=== PATIENT | female | born 1940 | race Caucasian/White ===

== ENCOUNTER 2017-03-13 19:13 | Inpatient (IN) | payer MEDICARE, OTHER ==
[~2017-03-13] VITALS: Ht 172.7 cm; Wt 73.3 kg
[2017-03-13] MEDS ORDERED: SODIUM CHLORIDE FLUSH 10ML SYR IVF ONE (20:30)
[2017-03-13] MEDS ORDERED: ASPIRIN 81 MG TABLET CHEW PO ONE (20:30)
[2017-03-13] MEDS ORDERED: MAGN300C PO (20:34)
[2017-03-13] MEDS ORDERED: FURO20TA3 PO (20:34)
[2017-03-13] MEDS ORDERED: VICODIN (20:34)
[2017-03-13] MEDS ORDERED: CHOL20002 PO (20:34)
[2017-03-13] MEDS ORDERED: OMEP-110 PO (20:34)
[2017-03-13] MEDS ORDERED: PRED5TAB PO (20:34)
[2017-03-13] MEDS ORDERED: HYDR200T PO (20:34)
[2017-03-13] MEDS ORDERED: BECL8.7H INH (20:34)
[2017-03-13] MEDS ORDERED: [UNRECOGNIZED DRUG - OTHER] (20:34)
[2017-03-13] MEDS ORDERED: POTA10TA31 PO (20:34)
[2017-03-13] MEDS ORDERED: WARF1TAB7 PO (20:34)
[2017-03-13] MEDS ORDERED: ASPIRIN 81 MG TABLET CHEW ONE (20:42)
[2017-03-13 21:04] LABS: ASPARTATE AMINO TRANSFERASE 19 U/L (15-37); BLOOD UREA NITROGEN 12 mg/dL (7-18)
[2017-03-13 21:14] LABS: IS PT STATUS REG ER OR PRE ER? YES
[2017-03-13] MEDS ORDERED: IBUPROFEN 200 MG TABLET ONE (22:59)
[2017-03-13] MEDS ORDERED: CEFTRIAXONE PMX 1GM/50ML 50 ML ONE (22:59)
[2017-03-13] MEDS ORDERED: IBUPROFEN 200 MG TABLET PO ONE (23:00)
[2017-03-13] MEDS ORDERED: CEFTRIAXONE PMX 1GM/50ML 50 ML IV ONE (23:00)
[2017-03-13 23:40] VITALS: BP 131/71
[2017-03-13] MEDS ORDERED: BECLOMETHASONE MC SCH (23:45)
[2017-03-14] MEDS ORDERED: WARFARIN 1 MG TABLET PO-COUM SCH
[2017-03-14] MEDS ORDERED: GUAIFENESIN/DM 200-20MG, 10ML UDC PO PRN
[2017-03-14] MEDS ORDERED: ENALAPRILAT 1.25 MG/ML, 2ML IVPush PRN
[2017-03-14] MEDS ORDERED: BISACODYL 10 MG SUPP PR PRN
[2017-03-14] MEDS ORDERED: POLYETHYLENE GLYCOL 17 GM PACKET PO PRN
[2017-03-14] MEDS ORDERED: ONDANSETRON 2MG/ML, 2ML IVP PRN
[2017-03-14] MEDS ORDERED: IBUPROFEN 200 MG TABLET PO PRN (00:30)
[2017-03-14 00:46] VITALS: BP 131/71
[2017-03-14] MEDS: NS + 20MEQ KCL 1,000 ML IV SCH ×2 (00:52→11:39)
[2017-03-14] MEDS ORDERED: ALBUTEROL SULFATE 2.5 MG/3 ML NPPB PRN (01:00)
[2017-03-14 03:47] LABS: PATH.CAST-FLAG NOT PRESENT; SPERM-FLAG NOT PRESENT; SRC-FLAG NOT PRESENT; XTAL-FLAG NOT PRESENT; YLC-FLAG NOT PRESENT
[2017-03-14 06:34] LABS: BLOOD UREA NITROGEN 12 mg/dL (7-18)
[2017-03-14 06:36] LABS: ASPARTATE AMINO TRANSFERASE 20 U/L (15-37)
[2017-03-14 07:06] VITALS: BP 161/79
[2017-03-14] MEDS: OMEPRAZOLE 20 MG CAPSULE.DR PO SCH (08:57)
[2017-03-14] MEDS ORDERED: HYDROcodone/APAP 5/325 TABLET PO PRN (09:00)
[2017-03-14] MEDS: POTASSIUM CHLORIDE 10 MEQ TABLET.ER PO SCH (10:30)
[2017-03-14] MEDS: MAGNESIUM OXIDE 400 MG TABLET PO SCH (10:30)
[2017-03-14] MEDS: CHOLECALCIFEROL 1,000 UNIT TABLET PO SCH (10:30)
[2017-03-14] MEDS: SENNA/DOCUSATE TABLET PO SCH ×2 (10:30→10:34)
[2017-03-14] MEDS: FUROSEMIDE 20 MG TABLET PO SCH (10:31)
[2017-03-14] MEDS ORDERED: BENZONATATE 100 MG CAPSULE PO PRN (12:30)
[2017-03-14 13:33] VITALS: BP 173/90
[2017-03-14] MEDS: CEFTRIAXONE PMX 1GM/50ML 50 ML IV SCH (13:50)
[2017-03-14 14:27] VITALS: BP 138/63
[2017-03-14] MEDS: DOXYCYCLINE 100 MG in DEXTROSE 5% 250 ML IV SCH (14:38)
[2017-03-14] MEDS: FLUTICASONE FUROATE 200MCG/INH INH SCH (20:00)
[2017-03-14 20:06] VITALS: BP 139/66
[2017-03-14] MEDS: HYDROXYCHLOROQUINE 200 MG TABLET PO SCH (20:15)
[2017-03-14] MEDS ORDERED: NS + 20MEQ KCL 1,000 ML IV SCH (23:00)
[2017-03-15 01:36] VITALS: BP 126/72
[2017-03-15] MEDS: CEFTRIAXONE PMX 1GM/50ML 50 ML IV SCH (02:05)
[2017-03-15] MEDS: DOXYCYCLINE 100 MG in DEXTROSE 5% 250 ML IV SCH (02:36)
[2017-03-15 06:30] LABS: BLOOD UREA NITROGEN 9 mg/dL (7-18)
[2017-03-15 07:28] VITALS: BP 143/76
[2017-03-15] MEDS: FUROSEMIDE 20 MG TABLET PO SCH (08:39)
[2017-03-15] MEDS: CHOLECALCIFEROL 1,000 UNIT TABLET PO SCH (08:40)
[2017-03-15] MEDS: MAGNESIUM OXIDE 400 MG TABLET PO SCH (08:40)
[2017-03-15] MEDS: OMEPRAZOLE 20 MG CAPSULE.DR PO SCH (08:40)
[2017-03-15] MEDS: FLUTICASONE FUROATE 200MCG/INH INH SCH (08:43)
[2017-03-15] MEDS: HYDROXYCHLOROQUINE 200 MG TABLET PO SCH (08:44)
[2017-03-15] MEDS: POTASSIUM CHLORIDE 10 MEQ TABLET.ER PO SCH (08:45)
[2017-03-15] MEDS: DOXYCYCLINE 100MG TABLET PO SCH ×2 (11:38→20:47)
[2017-03-15] MEDS: CEFDINIR 300 MG CAPSULE PO SCH ×2 (11:38→20:47)
[2017-03-15 13:22] VITALS: BP 111/65
[2017-03-15] MEDS ORDERED: WARFARIN 1 MG TABLET PO-COUM SCH (18:00)
[2017-03-15] MEDS ORDERED: WARFARIN 3 MG TABLET PO-COUM SCH (18:00)
[2017-03-15 18:38] VITALS: BP 120/67
[2017-03-16 03:59] VITALS: BP 154/81
[2017-03-16 06:35] VITALS: BP 149/74
[2017-03-16] MEDS: FLUTICASONE FUROATE 200MCG/INH INH SCH (08:17)
[2017-03-16] MEDS: FUROSEMIDE 20 MG TABLET PO SCH (08:19)
[2017-03-16] MEDS: OMEPRAZOLE 20 MG CAPSULE.DR PO SCH (08:19)
[2017-03-16] MEDS: MAGNESIUM OXIDE 400 MG TABLET PO SCH (08:19)
[2017-03-16] MEDS: POTASSIUM CHLORIDE 10 MEQ TABLET.ER PO SCH (08:19)
[2017-03-16] MEDS: DOXYCYCLINE 100MG TABLET PO SCH (08:20)
[2017-03-16] MEDS: SENNA/DOCUSATE TABLET PO SCH (08:20)
[2017-03-16] MEDS: CEFDINIR 300 MG CAPSULE PO SCH (08:20)
[2017-03-16] MEDS: CHOLECALCIFEROL 1,000 UNIT TABLET PO SCH (08:21)
[2017-03-16] MEDS ORDERED: DOXY100T PO (08:34)
[2017-03-16] MEDS ORDERED: CEFD300C37 PO (08:34)
== END 2017-03-16 11:46 | disposition home or self-care (01) | DRG 871 ==
LOC: ED 20:50 → EDIP 22:33 → 4NOR 23:22
PROVIDERS: ADMIT Internal Medicine
DX: A41.9 Sepsis, unspecified organism (principal); J18.9 Pneumonia, unspecified organism; J96.21 Acute and chronic respiratory failure with hypoxia; E87.1 Hypo-osmolality and hyponatremia; E87.6 Hypokalemia; D63.8 Anemia in other chronic diseases classified elsewhere; I11.9 Hypertensive heart disease without heart failure; K21.9 Gastro-esophageal reflux disease without esophagitis; Z66 Do not resuscitate; Z79.01 Long term (current) use of anticoagulants; Z79.52 Long term (current) use of systemic steroids; Z85.828 Personal history of other malignant neoplasm of skin; Z86.718 Personal history of other venous thrombosis and embolism; Z87.01 Personal history of pneumonia (recurrent); Z79.899 Other long term (current) drug therapy
CPT/HCPCS: 36415; 71010; 71250; 80048; 80053; 81001; 83605; 83735; 83880; 84145; 84484; 85025; 85379; 85610; 87040; 87070; 87205; 93005; 96374; J0696; J2405; J3480; J7060; J7512

== ENCOUNTER 2017-07-08 14:32 | Inpatient (IN) | payer MEDICARE, OTHER ==
[~2017-07-08] VITALS: Ht 172.7 cm; Wt 60.1 kg
[~2017-07-08 14:32] MED LIST: BECL8.7H INH; CEFD300C37 PO; CHOL20002 PO; DOXY100T PO; FURO20TA3 PO; HYDR200T PO; MAGN300C PO; OMEP-110 PO; POTA10TA31 PO; PRED5TAB PO; VICODIN; WARF1TAB7 PO; [UNRECOGNIZED DRUG - OTHER]
[2017-07-08] MEDS ORDERED: ONDANSETRON 2MG/ML, 2ML IVPush ONE ×2 (15:30→20:00)
[2017-07-08] MEDS ORDERED: FAMOTIDINE 20 MG/2 ML IVP ONE (15:30)
[2017-07-08] MEDS ORDERED: SODIUM CHLORIDE 0.9% 1,000ML IVBOLUS ONE (15:30)
[2017-07-08] MEDS ORDERED: SODIUM CHLORIDE FLUSH 10ML SYR IVF ONE (15:30)
[2017-07-08 16:28] LABS: HEMATOCRIT 41.9 % (34.6-47.8); HEMOGLOBIN 13.9 g/dL (11.7-16.4); WHITE BLOOD COUNT 10.1 x10^3/uL (3.4-10)
[2017-07-08 16:41] LABS: BLOOD UREA NITROGEN 19 mg/dL (7-18)
[2017-07-08 16:44] LABS: ASPARTATE AMINO TRANSFERASE 14 U/L (15-37)
[2017-07-08] MEDS ORDERED: SODIUM CHLORIDE 0.9% 1,000 ML IV ONE ×2 (19:46→20:17)
[2017-07-08] MEDS ORDERED: HYDROmorphone 1 MG/ML, 1ML ONE (19:49)
[2017-07-08] MEDS ORDERED: ONDANSETRON 2MG/ML, 2ML ONE (19:52)
[2017-07-08] MEDS ORDERED: MORPHINE SULFATE 4 MG/ML, 1ML ONE (19:52)
[2017-07-08] MEDS ORDERED: MORPHINE SULFATE 4 MG/ML, 1ML IVPush PRN ×2 (20:00→20:30)
[2017-07-08] MEDS ORDERED: SODIUM CHLORIDE FLUSH 10ML SYR IVF PRN (20:30)
[2017-07-08] MEDS ORDERED: CEFTRIAXONE PMX 1GM/50ML 50 ML IV ONE (20:30)
[2017-07-08] MEDS ORDERED: ONDANSETRON 2MG/ML, 2ML IVPush PRN ×2 (20:30→21:30)
[2017-07-08] MEDS ORDERED: CEFTRIAXONE PMX 1GM/50ML 50 ML ONE (20:37)
[2017-07-08 21:10] VITALS: BP 157/72
[2017-07-08] MEDS ORDERED: CEFTRIAXONE PMX 1GM/50ML 50 ML IV SCH (21:30)
[2017-07-08] MEDS ORDERED: BISACODYL 10 MG SUPP PR PRN (21:30)
[2017-07-08] MEDS ORDERED: ACETAMINOPHEN 325 MG TABLET PO PRN (21:30)
[2017-07-08] MEDS ORDERED: PROMETHAZINE 25 MG/ML, 1ML IM PRN (21:30)
[2017-07-08] MEDS: morphine SULFATE 10 MG/ML, 1ML IVPush PRN (23:03)
[2017-07-08 23:28] VITALS: BP 157/72
[2017-07-09] VITALS (8 sets, daily range): BP systolic 112–166; BP diastolic 65–77
[2017-07-09] MEDS: NS + 20MEQ KCL 1,000 ML IV SCH (02:21)
[2017-07-09] MEDS ORDERED: MORPHINE SULFATE 4 MG/ML, 1ML ONE ×2 (02:36→10:50)
[2017-07-09] MEDS: morphine SULFATE 10 MG/ML, 1ML IVPush PRN ×3 (02:38→19:41)
[2017-07-09 05:10] LABS: BLOOD UREA NITROGEN 15 mg/dL (7-18)
[2017-07-09] MEDS ORDERED: FENTANYL PF 100 MCG/2ML ONE (07:46)
[2017-07-09] MEDS ORDERED: HYDROCORTISONE 100 MG INJ. ONE (07:51)
[2017-07-09] MEDS ORDERED: PROPOFOL 10 MG/ML, 20ML ONE (08:04)
[2017-07-09] MEDS ORDERED: ROCURONIUM 10 MG/ML ONE (08:04)
[2017-07-09] MEDS ORDERED: GLYCOPYRROLATE 0.2MG/1ML ONE (08:04)
[2017-07-09] MEDS ORDERED: PHENYLEPHRINE 10 MG/ML ONE (08:04)
[2017-07-09] MEDS ORDERED: NEOSTIGMINE 1 MG/ML, 10ML ONE (08:04)
[2017-07-09] MEDS ORDERED: SUCCINYLCHOLINE 20 MG/ML, 10ML ONE (08:04)
[2017-07-09] MEDS ORDERED: LABETALOL 5MG/ML, 20ML IV PRN (08:30)
[2017-07-09] MEDS ORDERED: PROMETHAZINE 25 MG/ML, 1ML IV PRN (08:30)
[2017-07-09] MEDS ORDERED: FENTANYL PF 100 MCG/2ML IV PRN (08:30)
[2017-07-09] MEDS ORDERED: morphine SULFATE 10 MG/ML, 1ML IV PRN (08:30)
[2017-07-09] MEDS ORDERED: hydrALAzine 20 MG/ML, 1ML IV PRN (08:30)
[2017-07-09] MEDS ORDERED: ALBUTEROL SULFATE 2.5 MG/3 ML NPPB PRN (08:30)
[2017-07-09] MEDS: FLUTICASONE NASAL SPRAY 16GM NAS SCH ×2 (09:00→21:00)
[2017-07-09] MEDS: PANTOPROZOLE 40MG TABLET PO SCH ×2 (09:30→21:30)
[2017-07-09] MEDS: SUCRALFATE 1 GM/10 ML UDC PO SCH ×3 (10:55→21:33)
[2017-07-09] MEDS ORDERED: POTASSIUM CHLORIDE 40 MEQ in SODIUM CHLORIDE 0.9% 500 ML IV ONE (13:30)
[2017-07-09] MEDS: SODIUM CHLORIDE 0.9% 1,000 ML IV SCH (21:34)
[2017-07-10] MEDS ORDERED: MORPHINE SULFATE 4 MG/ML, 1ML ONE (01:28)
[2017-07-10] MEDS: morphine SULFATE 10 MG/ML, 1ML IVPush PRN (01:32)
[2017-07-10 02:00] VITALS: BP 114/63
[2017-07-10] MEDS: SODIUM CHLORIDE 0.9% 1,000 ML IV SCH (07:30)
[2017-07-10 08:20] LABS: BLOOD UREA NITROGEN 13 mg/dL (7-18)
[2017-07-10 08:25] VITALS: BP 110/63
[2017-07-10 08:44] LABS: HEMOGLOBIN 10.1 g/dL (11.7-16.4); WHITE BLOOD COUNT 5.9 x10^3/uL (3.4-10)
[2017-07-10] MEDS: NS + 20MEQ KCL 1,000 ML IV SCH (09:12)
[2017-07-10] MEDS: SUCRALFATE 1 GM/10 ML UDC PO SCH ×2 (09:15→11:21)
[2017-07-10] MEDS: FLUTICASONE NASAL SPRAY 16GM NAS SCH (09:15)
[2017-07-10] MEDS: PANTOPROZOLE 40MG TABLET PO SCH ×2 (09:16→09:29)
[2017-07-10] MEDS ORDERED: ACETAMINOPHEN 325 MG TABLET PO PRN (14:30)
[2017-07-10] MEDS ORDERED: PROMETHAZINE 25 MG/ML, 1ML IM PRN (14:30)
[2017-07-10] MEDS ORDERED: BISACODYL 10 MG SUPP PR PRN (14:30)
== END 2017-07-10 14:20 | disposition home or self-care (01) | DRG 394 ==
LOC: ED 18:20 → EDIP 20:17 → 3NW 21:30
PROVIDERS: ADMIT Family Medicine; ATTEND Family Medicine
PROC: 0DC58ZZ Extirpation of Matter from Esophagus, Via Natural or Artificial Opening Endoscopic (ICD-10-PCS; principal; 2017-07-08)
PROC: 0D758ZZ Dilation of Esophagus, Via Natural or Artificial Opening Endoscopic (ICD-10-PCS; 2017-07-08)
PROC: 0DB58ZX Excision of Esophagus, Via Natural or Artificial Opening Endoscopic, Diagnostic (ICD-10-PCS; 2017-07-08)
DX: T18.128A Food in esophagus causing other injury, initial encounter (principal); D68.69 Other thrombophilia; E46 Unspecified protein-calorie malnutrition; J84.10 Pulmonary fibrosis, unspecified; Z99.81 Dependence on supplemental oxygen; N30.90 Cystitis, unspecified without hematuria; B95.61 Methicillin susceptible Staphylococcus aureus infection as the cause of diseases classified elsewhere; K22.2 Esophageal obstruction; E86.0 Dehydration; E11.9 Type 2 diabetes mellitus without complications; E87.6 Hypokalemia; I10 Essential (primary) hypertension; K21.0 Gastro-esophageal reflux disease with esophagitis; M06.9 Rheumatoid arthritis, unspecified; Z66 Do not resuscitate; X58.XXXA Exposure to other specified factors, initial encounter; Y93.89 Activity, other specified; Y92.89 Other specified places as the place of occurrence of the external cause; Z68.20 Body mass index [BMI] 20.0-20.9, adult; Y99.8 Other external cause status; Z79.01 Long term (current) use of anticoagulants; Z86.718 Personal history of other venous thrombosis and embolism; Z87.440 Personal history of urinary (tract) infections; Z88.1 Allergy status to other antibiotic agents; Z88.0 Allergy status to penicillin; Z88.2 Allergy status to sulfonamides; Z88.8 Allergy status to other drugs, medicaments and biological substances
CPT/HCPCS: 36415; 74022; 74220; 80048; 80053; 81001; 83690; 83735; 85025; 85610; 86850; 86900; 87077; 87086; 87186; 88305; 93005; 96361; 96365; 96375; J0696; J2405; J2704; J2710; J3010; J3480; J3490; J0330; J1720; J2270; J2370; J7030; J7040; P9017

== ENCOUNTER 2017-07-19 07:05 | Outpatient (CLI) | payer MEDICARE, OTHER ==
[~2017-07-19] VITALS: Ht 172.7 cm; Wt 56.0 kg
[~2017-07-19 07:05] MED LIST changes: +BUPIVACAINE/PF 0.5% ONE; +CYCL5TAB PO; +IPRA5POW PO; +OXYC-302 PO
[2017-07-19] MEDS ORDERED: FENTANYL PF 100 MCG/2ML ONE ×2 (07:16)
[2017-07-19] MEDS ORDERED: MIDAZOLAM 1 MG/ML, 2ML ONE (07:16)
[2017-07-19] MEDS ORDERED: LACTATED RINGERS 1,000 ML IV SCH (07:30)
[2017-07-19 08:16] LABS: PATH.CAST-FLAG NOT PRESENT; SPERM-FLAG NOT PRESENT; SRC-FLAG NOT PRESENT; XTAL-FLAG NOT PRESENT; YLC-FLAG NOT PRESENT
[2017-07-19 09:01] VITALS: BP 149/74
[2017-07-19 09:13] LABS: HIV 1&2 ANTIBODY SCREEN Nonreactive (Nonreactive); HIV-1 p24 ANTIGEN Nonreactive (Nonreactive)
[2017-07-19] MEDS ORDERED: OXYcodone/APAP 5/325MG TABLET ONE (09:57)
[2017-07-19] MEDS ORDERED: OXYcodone/APAP 5/325MG TABLET PO ONE (10:00)
== END 2017-07-19 11:30 | disposition home or self-care (01) ==
LOC: OUT 07:05 → EDSTATUS 09:00 → OUT 11:30
PROVIDERS: ATTEND Orthopaedic Surgery Orthopaedic Surgery of the Spine
DX: Z01.818 Encounter for other preprocedural examination (principal); M48.54XA Collapsed vertebra, not elsewhere classified, thoracic region, initial encounter for fracture; M48.56XA Collapsed vertebra, not elsewhere classified, lumbar region, initial encounter for fracture; M06.9 Rheumatoid arthritis, unspecified; M47.894 Other spondylosis, thoracic region; M47.896 Other spondylosis, lumbar region; K21.9 Gastro-esophageal reflux disease without esophagitis; Z79.899 Other long term (current) drug therapy; Z88.8 Allergy status to other drugs, medicaments and biological substances
CPT/HCPCS: 36415; 81001; 85610; 86703; 86704; 86706; 86708; 86803; 87340; 87899; J2250; J3010; J3490; G0435

== ENCOUNTER 2017-09-27 07:25 | Day surgery (SDC) | payer MEDICARE, OTHER ==
[~2017-09-27] VITALS: Ht 172.7 cm; Wt 54.0 kg
[~2017-09-27 07:25] MED LIST changes: -BUPIVACAINE/PF 0.5% ONE
[2017-09-27 08:06] VITALS: BP 112/75
[2017-09-27] MEDS ORDERED: LACTATED RINGERS 1,000 ML IV SCH (08:09)
[2017-09-27] MEDS ORDERED: APIX2.5T PO (08:14)
[2017-09-27] MEDS ORDERED: BECL8.7H INH (08:14)
[2017-09-27] MEDS ORDERED: LIDOCAINE 1%, 2ML ONE (08:16)
[2017-09-27] MEDS ORDERED: ALBUTEROL SULFATE 2.5 MG/3 ML NPPB PRN (08:30)
[2017-09-27] MEDS ORDERED: LIDOCAINE 1%, 2ML SQ PRN (08:30)
[2017-09-27] MEDS ORDERED: EPHEDRINE 50 MG/ML, 1ML IVPush PRN (08:30)
[2017-09-27] MEDS ORDERED: METOPROLOL 1 MG/ML, 5ML IV PRN (08:30)
[2017-09-27] MEDS ORDERED: hydrALAzine 20 MG/ML, 1ML IV PRN (08:30)
[2017-09-27] MEDS ORDERED: FENTANYL PF 100 MCG/2ML IV PRN (08:30)
[2017-09-27] MEDS ORDERED: ONDANSETRON 2MG/ML, 2ML IVPush PRN (08:30)
[2017-09-27] MEDS ORDERED: LABETALOL 5MG/ML, 20ML IV PRN (08:30)
== END 2017-09-27 12:35 ==
LOC: OUT 07:25
PROVIDERS: ATTEND Internal Medicine Gastroenterology
DX: K29.60 Other gastritis without bleeding (principal); K22.2 Esophageal obstruction; Z88.1 Allergy status to other antibiotic agents; Z88.5 Allergy status to narcotic agent; Z88.8 Allergy status to other drugs, medicaments and biological substances; Z86.718 Personal history of other venous thrombosis and embolism
CPT/HCPCS: 43249; C1725; J3010; J3490; J7120

== ENCOUNTER → 2017-12-21 | Outpatient (CLI) | payer MEDICARE, OTHER ==
[~2017-12-21] MED LIST changes: +APIX2.5T PO
== END ==
LOC: CFH 12:27
PROVIDERS: ATTEND Internal Medicine Critical Care Medicine
DX: J84.9 Interstitial pulmonary disease, unspecified (principal); G89.29 Other chronic pain
CPT/HCPCS: 71250

== ENCOUNTER → 2018-01-05 | Outpatient (CLI) | payer MEDICARE, OTHER ==
[~2018-01-05] MED LIST changes: +OMNIPAQUE 350 MG/ML, 100ML BOTTLE ONE
== END ==
LOC: CFH 11:31
PROVIDERS: ATTEND Nurse Practitioner Family
DX: K76.0 Fatty (change of) liver, not elsewhere classified (principal); K59.00 Constipation, unspecified; M85.80 Other specified disorders of bone density and structure, unspecified site; Z88.0 Allergy status to penicillin; Z88.2 Allergy status to sulfonamides; Z88.8 Allergy status to other drugs, medicaments and biological substances
CPT/HCPCS: 74177; 82565; Q9967

== ENCOUNTER → 2018-01-10 | Outpatient (CLI) | payer MEDICARE, OTHER ==
[~2018-01-10] MED LIST changes: -OMNIPAQUE 350 MG/ML, 100ML BOTTLE ONE
== END | disposition home or self-care (01) ==
LOC: CFH 13:53
PROVIDERS: ATTEND Otolaryngology
DX: E04.1 Nontoxic single thyroid nodule (principal); D49.7 Neoplasm of unspecified behavior of endocrine glands and other parts of nervous system
CPT/HCPCS: 76536

== ENCOUNTER 2018-02-24 06:16 | Day surgery (SDC) | payer MEDICARE, OTHER ==
[~2018-02-24] VITALS: Ht 170.2 cm; Wt 59.3 kg
[~2018-02-24 06:16] MED LIST changes: -HYDR200T PO; +HYDR200T72 PO; -WARF1TAB7 PO; +WARF1TAB74 PO
[2018-02-24] MEDS ORDERED: LACTATED RINGERS 1,000 ML IV SCH (07:12)
[2018-02-24] MEDS ORDERED: APIX5TAB PO (07:28)
[2018-02-24] MEDS ORDERED: ACET1TAB64 PO (07:28)
[2018-02-24 07:57] VITALS: BP 168/77
[2018-02-24] MEDS ORDERED: PROPOFOL 10 MG/ML, 20ML ONE (08:15)
[2018-02-24] MEDS ORDERED: ACETAMINOPHEN 325 MG TABLET PO PRN (09:30)
[2018-02-24] MEDS ORDERED: ONDANSETRON ODT 4 MG PO ONE (09:30)
== END 2018-02-24 10:00 | disposition home or self-care (01) ==
LOC: OUT 06:16
PROVIDERS: ATTEND Internal Medicine Gastroenterology
DX: D12.2 Benign neoplasm of ascending colon (principal); D12.3 Benign neoplasm of transverse colon; K57.30 Diverticulosis of large intestine without perforation or abscess without bleeding; K21.9 Gastro-esophageal reflux disease without esophagitis; Z86.718 Personal history of other venous thrombosis and embolism; M19.90 Unspecified osteoarthritis, unspecified site; Z90.710 Acquired absence of both cervix and uterus; Z90.49 Acquired absence of other specified parts of digestive tract; Z93.0 Tracheostomy status; Z79.899 Other long term (current) drug therapy; Z88.2 Allergy status to sulfonamides; Z88.0 Allergy status to penicillin; Z88.8 Allergy status to other drugs, medicaments and biological substances; M85.80 Other specified disorders of bone density and structure, unspecified site; J84.10 Pulmonary fibrosis, unspecified
CPT/HCPCS: 45385; 88305; 93005; J2704; J7120

== ENCOUNTER → 2018-11-22 | Outpatient (CLI) | payer MEDICARE, OTHER ==
[~2018-11-22] MED LIST changes: +ACET1TAB64 PO; +APIX5TAB PO; -CHOL20002 PO; +CHOL200085 PO
== END | disposition home or self-care (01) ==
LOC: CFH 13:06
PROVIDERS: ATTEND Internal Medicine Critical Care Medicine
DX: J84.9 Interstitial pulmonary disease, unspecified (principal)
CPT/HCPCS: 71250

== ENCOUNTER 2019-06-22 12:41 | Outpatient (CLI) | payer MEDICARE, OTHER ==
[~2019-06-22 12:41] MED LIST changes: +BECL8.7H NS; +CHOL20002 PO; -CHOL200085 PO
[2019-06-22] MEDS ORDERED: POLY17PO5 PO (13:24)
[2019-06-22] MEDS ORDERED: MAGN250T8 PO (13:24)
[2019-06-22] MEDS ORDERED: POTA20TA89 PO (13:24)
[2019-06-22] MEDS ORDERED: IPRA3AMP30 NEB (13:24)
== END 2019-06-22 23:59 | disposition home or self-care (01) ==
LOC: STAR 12:41
PROVIDERS: ATTEND Internal Medicine Gastroenterology
DX: Z01.818 Encounter for other preprocedural examination (principal); R13.14 Dysphagia, pharyngoesophageal phase
CPT/HCPCS: 93005

== ENCOUNTER 2019-06-27 08:00 | Day surgery (SDC) | payer MEDICARE, OTHER ==
[~2019-06-27] VITALS: Ht 172.7 cm; Wt 54.0 kg
[2019-06-27 08:28] VITALS: BP 161/76
== END 2019-06-27 11:40 | disposition home or self-care (01) ==
LOC: OUT 08:00
PROVIDERS: ATTEND Internal Medicine Gastroenterology
DX: K22.5 Diverticulum of esophagus, acquired (principal); T18.128A Food in esophagus causing other injury, initial encounter; K44.9 Diaphragmatic hernia without obstruction or gangrene; K21.9 Gastro-esophageal reflux disease without esophagitis; Z86.718 Personal history of other venous thrombosis and embolism; Z90.710 Acquired absence of both cervix and uterus; Z98.890 Other specified postprocedural states; Z85.819 Personal history of malignant neoplasm of unspecified site of lip, oral cavity, and pharynx; Z88.1 Allergy status to other antibiotic agents; Z88.5 Allergy status to narcotic agent; Z88.0 Allergy status to penicillin; Z88.8 Allergy status to other drugs, medicaments and biological substances; X58.XXXA Exposure to other specified factors, initial encounter; Y93.89 Activity, other specified; Y92.89 Other specified places as the place of occurrence of the external cause; Y99.8 Other external cause status
CPT/HCPCS: 43247; 43248; J2704; J7120

== ENCOUNTER 2019-11-19 08:30 | Outpatient (CLI) | payer MEDICARE, OTHER ==
[~2019-11-19 08:30] MED LIST changes: +IPRA3AMP30 NEB; +MAGN250T8 PO; +POLY17PO5 PO; +POTA20TA89 PO
== END 2019-11-19 23:59 | disposition home or self-care (01) ==
LOC: RAD 08:30
PROVIDERS: ATTEND Surgery
DX: Q39.6 Congenital diverticulum of esophagus (principal); J84.10 Pulmonary fibrosis, unspecified; M19.90 Unspecified osteoarthritis, unspecified site; K22.8 Other specified diseases of esophagus; Z90.89 Acquired absence of other organs; Z90.710 Acquired absence of both cervix and uterus; Z88.8 Allergy status to other drugs, medicaments and biological substances; Z88.6 Allergy status to analgesic agent; Z88.0 Allergy status to penicillin; Z88.2 Allergy status to sulfonamides; Z88.5 Allergy status to narcotic agent
CPT/HCPCS: 74220

== ENCOUNTER 2019-11-20 10:30 | Outpatient (CLI) | payer MEDICARE, OTHER | END 2019-11-20 23:59 | disposition home or self-care (01) | LOC: CFH 10:30 | PROVIDERS: ATTEND Surgery | DX: R13.10 Dysphagia, unspecified (principal) | CPT/HCPCS: 82565 ==

== ENCOUNTER 2019-11-27 13:37 | Outpatient (CLI) | payer MEDICARE, OTHER, MEDICAID ==
[2019-11-27] MEDS ORDERED: OMNIPAQUE 350 MG/ML, 100ML BOTTLE ONE (16:06)
== END 2019-11-27 23:59 | disposition home or self-care (01) ==
LOC: CFH 13:37
PROVIDERS: ATTEND Surgery
DX: R13.10 Dysphagia, unspecified (principal); J84.10 Pulmonary fibrosis, unspecified; Q39.6 Congenital diverticulum of esophagus
CPT/HCPCS: 71260; 74177; Q9967; 82565

== ENCOUNTER → 2020-10-01 | Outpatient (CLI) | payer MEDICARE, OTHER | END | disposition home or self-care (01) | LOC: CFH 12:10 | PROVIDERS: ATTEND Internal Medicine | DX: J98.4 Other disorders of lung (principal); J47.9 Bronchiectasis, uncomplicated; M40.294 Other kyphosis, thoracic region; M48.54XA Collapsed vertebra, not elsewhere classified, thoracic region, initial encounter for fracture; J84.10 Pulmonary fibrosis, unspecified | CPT/HCPCS: 71250 ==

== ENCOUNTER 2021-04-14 10:07 | Inpatient (IN) | payer MEDICARE, MEDICAID ==
[~2021-04-14] VITALS: Ht 172.7 cm; Wt 64.1 kg
[~2021-04-14 10:07] MED LIST changes: -OXYC-302 PO; +OXYC1TAB14 PO
[2021-04-14 11:04] LABS: BASOPHILS % (AUTO) 0 % (0-1); EOSINOPHILS % (AUTO) 0 % (1-7); LYMPHOCYTES % (AUTO) 14 % (22-44); MEAN CORPUSCULAR HEMOGLOBIN 27.4 pg (27.0-34.8); MEAN CORPUSCULAR HGB CONC 33.2 g/dL (32.4-35.8); MEAN PLATELET VOLUME 8.1 fL (7.4-10.4); MONOCYTES % (AUTO) 4 % (2-9); NEUTROPHILS % (AUTO) 82 % (42-75); PLATELET COUNT 89 x10^3/uL (130-400); RED BLOOD COUNT 3.67 x10^6/uL (3.82-5.3); RED CELL DISTRIBUTION WIDTH 19.9 % (9.6-15.2)
[2021-04-14 11:14] LABS: ALBUMIN 2.6 g/dL (3.4-5.0); ANION GAP 7 mmol/L (5-15); CALCIUM 8.5 mg/dL (8.5-10.1); CHLORIDE 104 mmol/L (98-107)
[2021-04-14 11:19] LABS: ALANINE AMINOTRANSFERASE 25 U/L (12-78); ALKALINE PHOSPHATASE 76 U/L (45-117); BILIRUBIN,TOTAL 0.9 mg/dL (0.2-1.0); CREATININE 0.76 mg/dL (0.55-1.02); TOTAL PROTEIN 5.5 g/dL (6.4-8.2)
--- NOTE | 2021-04-14 11:51 | NUR ---
PT EMACIATED, RPTS ONLY ABLE TO TOLLERATE VERY SMALL AMTS OF FOOD/WATER. 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 DR TINEO AT BEDSIDE, PT ASSESSMENT AND POC REVIEWED AND QUESTIONS ANSWERED. ALL MONITORS PLACED AND PT ON WAFFEL MATTRESS 2/2 TO MALNUTRITION AND EXISITING PRESSURE WOUNDS TO SACRUM AND OLIVA ELBOWS. PILLOWS PLACED FOR COMFORT AND OFF LOADING. VSS, CALL LIGHT W/I REACH
[2021-04-14] MEDS ORDERED: SODIUM CHLORIDE FLUSH 10ML SYR IVF ONE (12:00)
[2021-04-14] MEDS ORDERED: SODIUM CHLORIDE 0.9% 1,000ML IVBOLUS ONE (12:00)
[2021-04-14 12:31] LABS: TROPONIN I 0.164 ng/mL (0.000-0.045)
[2021-04-14] MEDS ORDERED: ASPIRIN 81 MG TABLET CHEW PO ONE (13:00)
[2021-04-14] MEDS ORDERED: ASPIRIN 81 MG TABLET CHEW ONE (13:17)
--- NOTE | 2021-04-14 13:51 | NUR ---
STRAIGHT CATH FOR URINE SAMPLE COMPLETED, PT TOLLERATED WELL.
[2021-04-14 14:05] LABS: MICROSCOPIC INDICATED
[2021-04-14 14:26] VITALS: BP 108/64
[2021-04-14] MEDS ORDERED: PRED5TAB19 PO (15:39)
[2021-04-14] MEDS ORDERED: FAMO40TA4 PO (15:41)
[2021-04-14] MEDS ORDERED: hydrALAzine 20 MG/ML, 1ML IVPush PRN (18:00)
[2021-04-14] MEDS ORDERED: METOCLOPRAMIDE 5 MG/ML, 2ML IVPush PRN (18:00)
[2021-04-14] MEDS ORDERED: MELATONIN 5 MG TABLET PO PRN (18:00)
[2021-04-14] MEDS ORDERED: ONDANSETRON ODT 4 MG PO PRN (18:00)
[2021-04-14] MEDS: D5%-LACTATED RINGERS 1,000 ML IV SCH (18:30)
[2021-04-14 19:24] VITALS: BP 99/65
[2021-04-14] MEDS: HYDROXYCHLOROQUINE 200 MG TABLET PO SCH (20:46)
[2021-04-14] MEDS ORDERED: APIXABAN 5 MG TABLET PO SCH (21:00)
[2021-04-14 22:13] LABS: TROPONIN I 0.127 ng/mL (0.000-0.045)
[2021-04-14] MEDS ORDERED: MAGNESIUM SULFATE PMX 2GM/50ML 50 ML IV ONE (23:30)
[2021-04-15 01:15] VITALS: BP 117/63
[2021-04-15 05:27] LABS: BASOPHILS % (AUTO) 0 % (0-1); EOSINOPHILS % (AUTO) 0 % (1-7); LYMPHOCYTES % (AUTO) 8 % (22-44); MEAN CORPUSCULAR HEMOGLOBIN 27.6 pg (27.0-34.8); MEAN CORPUSCULAR HGB CONC 33.5 g/dL (32.4-35.8); MEAN PLATELET VOLUME 7.5 fL (7.4-10.4); MONOCYTES % (AUTO) 4 % (2-9); NEUTROPHILS % (AUTO) 88 % (42-75); PLATELET COUNT 73 x10^3/uL (130-400); RED CELL DISTRIBUTION WIDTH 19.5 % (9.6-15.2)
[2021-04-15 05:40] LABS: CHLORIDE 106 mmol/L (98-107)
[2021-04-15 06:01] LABS: ALANINE AMINOTRANSFERASE 23 U/L (12-78); ALKALINE PHOSPHATASE 67 U/L (45-117); ANION GAP 6 mmol/L (5-15); BILIRUBIN,TOTAL 0.6 mg/dL (0.2-1.0); CALCIUM 7.7 mg/dL (8.5-10.1); CHOL/HDL RATIO 4.1; CHOLESTEROL, TOTAL 106 mg/dL (140-239); CREATININE 0.55 mg/dL (0.55-1.02); HDL CHOL % 25 % (28-40); HDL CHOLESTEROL (DIRECT) 26 mg/dL (40-60); LDL CHOLESTEROL,CALCULATED 56 mg/dL (54-169); LDL/HDL RATIO 2.2 (0.5-3.0); TOTAL PROTEIN 4.6 g/dL (6.4-8.2); TRIGLYCERIDES 121 mg/dL (50-200); TROPONIN I 0.118 ng/mL (0.000-0.045); VLDL CHOLESTEROL 24 mg/dL (0-25)
[2021-04-15] MEDS: APIXABAN 5 MG TABLET PO SCH ×2 (08:37→19:45)
[2021-04-15] MEDS: HYDROXYCHLOROQUINE 200 MG TABLET PO SCH ×2 (08:37→20:48)
[2021-04-15] MEDS: PANTOPRAZOLE 40 MG IV IVPush SCH (08:38)
[2021-04-15] MEDS: CHOLECALCIFEROL 1,000 UNIT TABLET PO SCH (08:38)
[2021-04-15 08:53] VITALS: BP 144/89
[2021-04-15] MEDS: FLUTICASONE NASAL SPRAY 16GM NAS SCH (09:36)
[2021-04-15] MEDS: D5%-LACTATED RINGERS 1,000 ML IV SCH (11:35)
[2021-04-15 14:51] VITALS: BP 105/72
[2021-04-15 20:40] VITALS: BP 122/72
[2021-04-16 00:16] VITALS: BP 97/64
[2021-04-16] MEDS: D5%-LACTATED RINGERS 1,000 ML IV SCH ×2 (00:21→19:00)
[2021-04-16 04:46] LABS: BASOPHILS % (AUTO) 0 % (0-1); EOSINOPHILS % (AUTO) 0 % (1-7); LYMPHOCYTES % (AUTO) 9 % (22-44); MEAN CORPUSCULAR HEMOGLOBIN 27.3 pg (27.0-34.8); MEAN CORPUSCULAR HGB CONC 33.2 g/dL (32.4-35.8); MEAN PLATELET VOLUME 8.1 fL (7.4-10.4); MONOCYTES % (AUTO) 5 % (2-9); NEUTROPHILS % (AUTO) 86 % (42-75); PLATELET COUNT 85 x10^3/uL (130-400); RED BLOOD COUNT 3.28 x10^6/uL (3.82-5.3)
[2021-04-16 04:59] LABS: ANION GAP 6 mmol/L (5-15); CALCIUM 7.7 mg/dL (8.5-10.1); CHLORIDE 105 mmol/L (98-107)
[2021-04-16 05:02] LABS: CREATININE 0.55 mg/dL (0.55-1.02)
[2021-04-16 07:50] VITALS: BP 95/64
[2021-04-16] MEDS: APIXABAN 5 MG TABLET PO SCH ×2 (09:40→21:00)
[2021-04-16] MEDS: HYDROXYCHLOROQUINE 200 MG TABLET PO SCH ×2 (09:40→19:56)
[2021-04-16] MEDS: CHOLECALCIFEROL 1,000 UNIT TABLET PO SCH (09:42)
[2021-04-16] MEDS: ALBUMIN HUMAN 25% 100 ML IV SCH ×2 (09:49→18:36)
[2021-04-16] MEDS: PANTOPRAZOLE 40 MG IV IVPush SCH (09:50)
[2021-04-16] MEDS ORDERED: methylPREDNISolone SOD SUCC 40 MG/ML IV SCH (10:00)
[2021-04-16] MEDS: FLUTICASONE NASAL SPRAY 16GM NAS SCH (12:45)
[2021-04-16 14:00] VITALS: BP 123/75
[2021-04-16 18:57] VITALS: BP 107/68
[2021-04-17] VITALS (9 sets, daily range): BP systolic 69–124; BP diastolic 40–83
[2021-04-17] MEDS: ALBUMIN HUMAN 25% 100 ML IV SCH (01:19)
[2021-04-17] MEDS ORDERED: DIPHENHYDRAMINE 25 MG CAPSULE PO PRN (04:00)
[2021-04-17 04:50] LABS: BASOPHILS % (AUTO) 0 % (0-1); EOSINOPHILS % (AUTO) 0 % (1-7); LYMPHOCYTES % (AUTO) 7 % (22-44); MEAN CORPUSCULAR HEMOGLOBIN 27.7 pg (27.0-34.8); MEAN CORPUSCULAR HGB CONC 33.6 g/dL (32.4-35.8); MEAN PLATELET VOLUME 8.2 fL (7.4-10.4); MONOCYTES % (AUTO) 3 % (2-9); NEUTROPHILS % (AUTO) 90 % (42-75); PLATELET COUNT 89 x10^3/uL (130-400); RED BLOOD COUNT 3.28 x10^6/uL (3.82-5.3)
[2021-04-17 05:03] LABS: ALANINE AMINOTRANSFERASE 17 U/L (12-78); ANION GAP 4 mmol/L (5-15); CALCIUM 8.4 mg/dL (8.5-10.1); CHLORIDE 102 mmol/L (98-107)
[2021-04-17 05:06] LABS: ALKALINE PHOSPHATASE 67 U/L (45-117); BILIRUBIN,TOTAL 1.3 mg/dL (0.2-1.0); TOTAL PROTEIN 5.6 g/dL (6.4-8.2)
[2021-04-17] MEDS ORDERED: FUROSEMIDE 20 MG/2 ML ONE (07:22)
[2021-04-17] MEDS ORDERED: FUROSEMIDE 40 MG/4 ML ONE (07:24)
[2021-04-17] MEDS ORDERED: FUROSEMIDE 20 MG/2 ML IV ONE (07:30)
[2021-04-17] MEDS ORDERED: FUROSEMIDE 40 MG/4 ML IV ONE ×2 (07:30→10:00)
[2021-04-17] MEDS ORDERED: MORPHINE SULFATE 4 MG/ML, 1ML IV ONE (07:30)
[2021-04-17] MEDS: APIXABAN 5 MG TABLET PO SCH (07:55)
[2021-04-17] MEDS: CLINDAMYCIN PMX 600MG/50ML 50 ML IV SCH ×3 (08:03→23:51)
[2021-04-17] MEDS: PANTOPRAZOLE 40 MG IV IVPush SCH (08:08)
[2021-04-17] MEDS: CHOLECALCIFEROL 1,000 UNIT TABLET PO SCH (08:10)
[2021-04-17] MEDS: HYDROXYCHLOROQUINE 200 MG TABLET PO SCH ×2 (08:10→16:20)
[2021-04-17] MEDS ORDERED: FENTANYL PF 250 MCG/5ML ONE (09:15)
[2021-04-17] MEDS: FLUTICASONE NASAL SPRAY 16GM NAS SCH (09:33)
[2021-04-17] MEDS ORDERED: EPINEPHRINE 1 MG/ML, 1ML ONE (09:40)
[2021-04-17] MEDS ORDERED: BUPIVACAINE/PF 0.5% ONE (09:40)
[2021-04-17] MEDS ORDERED: METOPROLOL 1 MG/ML, 5ML IVPush PRN (14:00)
[2021-04-17] MEDS ORDERED: ALBUMIN HUMAN 25% 100 ML IV ONE ×2 (14:00→17:00)
[2021-04-17] MEDS ORDERED: POTASSIUM CHLORIDE 20 MEQ TAB.ER.PRT PO ONE (14:00)
[2021-04-17] MEDS ORDERED: DIGOXIN 0.25 MG/ML, 2ML IV ONE (14:30)
[2021-04-17] MEDS: ENOXAPARIN 40 MG/0.4 ML SQ SCH (16:20)
[2021-04-17 16:55] LABS: BASOPHILS % (AUTO) 0 % (0-1); EOSINOPHILS % (AUTO) 0 % (1-7); LYMPHOCYTES % (AUTO) 7 % (22-44); MEAN CORPUSCULAR HEMOGLOBIN 27.3 pg (27.0-34.8); MEAN CORPUSCULAR HGB CONC 33.1 g/dL (32.4-35.8); MEAN PLATELET VOLUME 7.5 fL (7.4-10.4); MONOCYTES % (AUTO) 4 % (2-9); NEUTROPHILS % (AUTO) 89 % (42-75); PLATELET COUNT 82 x10^3/uL (130-400); RED BLOOD COUNT 3.24 x10^6/uL (3.82-5.3); RED CELL DISTRIBUTION WIDTH 19.6 % (9.6-15.2)
[2021-04-17 17:02] LABS: ANION GAP 6 mmol/L (5-15); CALCIUM 8.2 mg/dL (8.5-10.1); CHLORIDE 102 mmol/L (98-107); CREATININE 0.69 mg/dL (0.55-1.02)
[2021-04-17] MEDS ORDERED: DIGOXIN 0.25 MG/ML, 2ML IVPush ONE (18:45)
[2021-04-18 00:40] VITALS: BP 93/57
[2021-04-18 07:07] VITALS: BP 80/49
[2021-04-18 07:40] LABS: BASOPHILS % (AUTO) 0 % (0-1); EOSINOPHILS % (AUTO) 0 % (1-7); LYMPHOCYTES % (AUTO) 14 % (22-44); MEAN CORPUSCULAR HEMOGLOBIN 27.3 pg (27.0-34.8); MEAN PLATELET VOLUME 7.9 fL (7.4-10.4); MONOCYTES % (AUTO) 4 % (2-9); NEUTROPHILS % (AUTO) 82 % (42-75); PLATELET COUNT 93 x10^3/uL (130-400); RED BLOOD COUNT 2.95 x10^6/uL (3.82-5.3)
[2021-04-18 07:52] LABS: ANION GAP 6 mmol/L (5-15); CHLORIDE 103 mmol/L (98-107); CREATININE 0.55 mg/dL (0.55-1.02)
[2021-04-18] MEDS ORDERED: POTASSIUM CHLORIDE 20 MEQ TAB.ER.PRT PO ONE (08:00)
[2021-04-18] MEDS ORDERED: MAGNESIUM SULFATE PMX 2GM/50ML 50 ML IV ONE (08:00)
[2021-04-18] MEDS: CHOLECALCIFEROL 1,000 UNIT TABLET PO SCH (10:13)
[2021-04-18] MEDS: HYDROXYCHLOROQUINE 200 MG TABLET PO SCH ×2 (10:13→20:35)
[2021-04-18] MEDS: PANTOPRAZOLE 40 MG IV IVPush SCH (10:14)
[2021-04-18] MEDS: HYDROCORTISONE 100 MG INJ. IVPush SCH ×2 (10:14→17:04)
[2021-04-18] MEDS: FLUTICASONE NASAL SPRAY 16GM NAS SCH (10:24)
[2021-04-18] MEDS: CLINDAMYCIN PMX 600MG/50ML 50 ML IV SCH ×2 (10:24→18:50)
[2021-04-18 13:00] VITALS: BP 100/64
[2021-04-18] MEDS: ENOXAPARIN 40 MG/0.4 ML SQ SCH (14:29)
[2021-04-18] MEDS: FUROSEMIDE 20 MG/2 ML IV SCH ×2 (17:05→20:38)
[2021-04-18] MEDS: POTASSIUM CHLORIDE 20 MEQ PACKET PO SCH ×2 (17:05→20:38)
[2021-04-18 18:28] VITALS: BP 106/61
[2021-04-19] MEDS: HYDROCORTISONE 100 MG INJ. IVPush SCH ×3 (00:14→22:35)
[2021-04-19 01:01] VITALS: BP 126/69
[2021-04-19] MEDS: CLINDAMYCIN PMX 600MG/50ML 50 ML IV SCH ×3 (02:11→22:34)
[2021-04-19 05:01] LABS: ANION GAP 9 mmol/L (5-15); CALCIUM 7.9 mg/dL (8.5-10.1); CHLORIDE 100 mmol/L (98-107)
[2021-04-19 05:02] LABS: CREATININE 0.68 mg/dL (0.55-1.02)
[2021-04-19 06:12] LABS: BASOPHILS % (AUTO) 0 % (0-1); EOSINOPHILS % (AUTO) 0 % (1-7); LYMPHOCYTES % (AUTO) 7 % (22-44); MEAN CORPUSCULAR HEMOGLOBIN 27.6 pg (27.0-34.8); MEAN CORPUSCULAR HGB CONC 33.7 g/dL (32.4-35.8); MONOCYTES % (AUTO) 4 % (2-9); NEUTROPHILS % (AUTO) 89 % (42-75); PLATELET COUNT 113 x10^3/uL (130-400); RED BLOOD COUNT 3.23 x10^6/uL (3.82-5.3); RED CELL DISTRIBUTION WIDTH 19.6 % (9.6-15.2)
[2021-04-19 07:14] VITALS: BP 123/56
[2021-04-19] MEDS ORDERED: FENTANYL PF 100 MCG/2ML ONE (08:12)
[2021-04-19] MEDS ORDERED: MIDAZOLAM 1 MG/ML, 2ML ONE (08:12)
[2021-04-19] MEDS ORDERED: FUROSEMIDE 20 MG/2 ML ONE ×2 (08:27→10:34)
[2021-04-19] MEDS: FUROSEMIDE 20 MG/2 ML IV SCH (09:00)
[2021-04-19] MEDS ORDERED: CLINDAMYCIN 150 MG/ML, 6ML ONE (09:34)
[2021-04-19] MEDS ORDERED: BUPIVACAINE/PF-EPI 0.5% 1:200K INFIL ONE (09:47)
[2021-04-19] MEDS ORDERED: NALOXONE 0.4 MG/ML, 1ML ONE (10:19)
[2021-04-19] MEDS ORDERED: FLUMAZENIL 0.1 MG/1 ML, 5ML ONE (10:20)
[2021-04-19 12:50] VITALS: BP 155/78
[2021-04-19] MEDS: PANTOPRAZOLE 40 MG IV IVPush SCH (13:01)
[2021-04-19] MEDS: FLUTICASONE NASAL SPRAY 16GM NAS SCH (13:07)
[2021-04-19] MEDS: ENOXAPARIN 40 MG/0.4 ML SQ SCH (13:45)
[2021-04-19] MEDS: POTASSIUM CHLORIDE 20 MEQ PACKET PO SCH ×3 (13:45→22:34)
[2021-04-19] MEDS: HYDROXYCHLOROQUINE 200 MG TABLET PO SCH ×2 (13:46→22:34)
[2021-04-19] MEDS: CHOLECALCIFEROL 1,000 UNIT TABLET PO SCH (13:46)
[2021-04-19] MEDS: ACETAMINOPHEN 325 MG TABLET PO PRN (17:08)
[2021-04-19 19:15] VITALS: BP 102/52
[2021-04-20 00:45] VITALS: BP 108/59
[2021-04-20 04:53] LABS: BASOPHILS % (AUTO) 0 % (0-1); EOSINOPHILS % (AUTO) 0 % (1-7); LYMPHOCYTES % (AUTO) 5 % (22-44); MEAN CORPUSCULAR HEMOGLOBIN 27.8 pg (27.0-34.8); MEAN CORPUSCULAR HGB CONC 34.1 g/dL (32.4-35.8); MEAN PLATELET VOLUME 8.2 fL (7.4-10.4); MONOCYTES % (AUTO) 5 % (2-9); NEUTROPHILS % (AUTO) 91 % (42-75); PLATELET COUNT 108 x10^3/uL (130-400); RED BLOOD COUNT 2.86 x10^6/uL (3.82-5.3); RED CELL DISTRIBUTION WIDTH 19.7 % (9.6-15.2)
[2021-04-20 05:04] LABS: CHLORIDE 100 mmol/L (98-107)
[2021-04-20 05:12] LABS: ANION GAP 7 mmol/L (5-15); CALCIUM 8.1 mg/dL (8.5-10.1); CREATININE 0.66 mg/dL (0.55-1.02)
[2021-04-20] MEDS: CLINDAMYCIN PMX 600MG/50ML 50 ML IV SCH ×3 (06:34→23:01)
[2021-04-20] MEDS: HYDROCORTISONE 100 MG INJ. IVPush SCH ×3 (06:36→23:01)
[2021-04-20] MEDS: PANTOPRAZOLE 40 MG IV IVPush SCH (06:37)
[2021-04-20] MEDS: ACETAMINOPHEN 325 MG TABLET PO PRN (06:43)
[2021-04-20 07:15] VITALS: BP 110/59
[2021-04-20] MEDS ORDERED: ACETAMINOPHEN 325 MG TABLET ONE (09:45)
[2021-04-20] MEDS: HYDROXYCHLOROQUINE 200 MG TABLET PO SCH ×2 (09:54→20:44)
[2021-04-20] MEDS: CHOLECALCIFEROL 1,000 UNIT TABLET PO SCH (09:54)
[2021-04-20] MEDS: FLUTICASONE NASAL SPRAY 16GM NAS SCH (09:55)
[2021-04-20] MEDS: FUROSEMIDE 20 MG/2 ML IV SCH (09:55)
[2021-04-20] MEDS: POTASSIUM CHLORIDE 20 MEQ PACKET PO SCH ×3 (09:55→20:44)
[2021-04-20] MEDS: ACETAMINOPHEN 650 MG/20.3 ML UDC GT SCH ×3 (10:51→23:01)
[2021-04-20 12:30] VITALS: BP 113/64
[2021-04-20] MEDS ORDERED: SENNA 176 MG/5 ML ORAL SOL PEG PRN (13:00)
[2021-04-20] MEDS: ENOXAPARIN 40 MG/0.4 ML SQ SCH (14:00)
[2021-04-20] MEDS ORDERED: DEXAMETHASONE 4 MG/ML, 1ML ONE (16:28)
[2021-04-20] MEDS ORDERED: SUCCINYLCHOLINE 20 MG/ML, 10ML ONE (16:28)
[2021-04-20] MEDS ORDERED: PHENYLEPHRINE 10 MG/ML ONE (16:28)
[2021-04-20] MEDS ORDERED: ROCURONIUM 10MG/ML,5ML ONE (16:28)
[2021-04-20] MEDS ORDERED: ETOMIDATE 20 MG/10 ML ONE (16:28)
[2021-04-20 19:30] VITALS: BP 129/73
[2021-04-21 01:34] VITALS: BP 117/73
[2021-04-21] MEDS: DOCUSATE 50 MG/5 ML, 10ML UDC GT PRN ×2 (02:41→16:43)
[2021-04-21] MEDS: ACETAMINOPHEN 650 MG/20.3 ML UDC GT SCH ×5 (05:51→22:07)
[2021-04-21] MEDS: CLINDAMYCIN PMX 600MG/50ML 50 ML IV SCH (06:43)
[2021-04-21] MEDS: HYDROCORTISONE 100 MG INJ. IVPush SCH ×3 (06:44→21:46)
[2021-04-21] MEDS: PANTOPRAZOLE 40 MG IV IVPush SCH (06:44)
[2021-04-21 07:24] VITALS: BP 120/64
[2021-04-21] MEDS ORDERED: BISACODYL 10 MG SUPP PR PRN (09:30)
[2021-04-21 09:44] VITALS: BP 149/72
[2021-04-21] MEDS: FUROSEMIDE 20 MG/2 ML IV SCH (09:57)
[2021-04-21] MEDS: POTASSIUM CHLORIDE 20 MEQ PACKET PO SCH ×3 (09:57→21:45)
[2021-04-21] MEDS: CHOLECALCIFEROL 1,000 UNIT TABLET PO SCH (09:57)
[2021-04-21] MEDS: HYDROXYCHLOROQUINE 200 MG TABLET PO SCH ×2 (09:57→20:12)
[2021-04-21] MEDS: DIGOXIN 0.125 MG TABLET PO SCH (09:57)
[2021-04-21] MEDS: ERTAPENEM 1 GM in SODIUM CHLORIDE 0.9% 50 ML IV SCH (09:57)
[2021-04-21] MEDS: APIXABAN 5 MG TABLET PO SCH ×2 (09:58→20:12)
[2021-04-21] MEDS: FLUTICASONE NASAL SPRAY 16GM NAS SCH (10:28)
[2021-04-21] MEDS: morphine SULFATE 10 MG/ML, 1ML IVPush PRN (10:29)
[2021-04-21 12:03] VITALS: BP 131/82
[2021-04-21 18:20] VITALS: BP 128/76
[2021-04-21] MEDS ORDERED: ACETAMINOPHEN 325 MG TABLET ONE (21:43)
[2021-04-21 23:15] VITALS: BP 137/83
[2021-04-22 04:58] LABS: BASOPHILS % (AUTO) 0 % (0-1); EOSINOPHILS % (AUTO) 0 % (1-7); LYMPHOCYTES % (AUTO) 4 % (22-44); MEAN CORPUSCULAR HEMOGLOBIN 27.7 pg (27.0-34.8); MEAN CORPUSCULAR HGB CONC 33.4 g/dL (32.4-35.8); MEAN PLATELET VOLUME 7.9 fL (7.4-10.4); MONOCYTES % (AUTO) 3 % (2-9); NEUTROPHILS % (AUTO) 94 % (42-75); PLATELET COUNT 123 x10^3/uL (130-400); RED BLOOD COUNT 3.13 x10^6/uL (3.82-5.3); RED CELL DISTRIBUTION WIDTH 19.7 % (9.6-15.2)
[2021-04-22 05:15] LABS: ANION GAP 5 mmol/L (5-15); CALCIUM 8.1 mg/dL (8.5-10.1); CHLORIDE 102 mmol/L (98-107)
[2021-04-22 05:17] LABS: CREATININE 0.72 mg/dL (0.55-1.02)
[2021-04-22] MEDS: ACETAMINOPHEN 650 MG/20.3 ML UDC GT SCH ×4 (05:37→22:34)
[2021-04-22] MEDS: HYDROCORTISONE 100 MG INJ. IVPush SCH ×3 (05:38→22:35)
[2021-04-22] MEDS ORDERED: VANCOMYCIN 1,000 MG in SODIUM CHLORIDE 0.9% 100 ML IV SCH (06:00)
[2021-04-22 07:18] VITALS: BP 126/67
[2021-04-22] MEDS: FUROSEMIDE 20 MG/2 ML IV SCH (08:40)
[2021-04-22] MEDS: HYDROXYCHLOROQUINE 200 MG TABLET PO SCH ×2 (08:40→22:35)
[2021-04-22] MEDS: APIXABAN 5 MG TABLET PO SCH ×2 (08:40→22:35)
[2021-04-22] MEDS: POTASSIUM CHLORIDE 20 MEQ PACKET PO SCH ×2 (08:41→15:51)
[2021-04-22] MEDS: CHOLECALCIFEROL 1,000 UNIT TABLET PO SCH (08:42)
[2021-04-22] MEDS: ERTAPENEM 1 GM in SODIUM CHLORIDE 0.9% 50 ML IV SCH (08:46)
[2021-04-22] MEDS: PANTOPRAZOLE 40 MG IV IVPush SCH (08:46)
[2021-04-22] MEDS: FLUTICASONE NASAL SPRAY 16GM NAS SCH (09:22)
[2021-04-22 12:26] VITALS: BP 123/70
[2021-04-22] MEDS: APAP/CODEINE 300/30MG TABLET PO PRN (16:40)
[2021-04-22] MEDS ORDERED: VANCOMYCIN 1,000 MG in SODIUM CHLORIDE 0.9% 100 ML IV ONE (18:00)
[2021-04-22 18:56] VITALS: BP 120/70
[2021-04-22] MEDS ORDERED: SODIUM PHOSPHATE 20 MMOL in SODIUM CHLORIDE 0.9% 500 ML IV ONE (21:30)
[2021-04-23 00:19] VITALS: BP 136/87
[2021-04-23 05:31] LABS: ALBUMIN 2.3 g/dL (3.4-5.0); ANION GAP 3 mmol/L (5-15); CHLORIDE 104 mmol/L (98-107)
[2021-04-23 05:41] LABS: ALANINE AMINOTRANSFERASE 21 U/L (12-78); ALKALINE PHOSPHATASE 66 U/L (45-117); BILIRUBIN,TOTAL 0.4 mg/dL (0.2-1.0); TOTAL PROTEIN 4.9 g/dL (6.4-8.2)
[2021-04-23] MEDS: ACETAMINOPHEN 650 MG/20.3 ML UDC GT SCH ×3 (06:06→23:24)
[2021-04-23] MEDS: HYDROCORTISONE 100 MG INJ. IVPush SCH ×3 (06:43→23:24)
[2021-04-23 07:29] VITALS: BP 126/79
[2021-04-23] MEDS: FLUTICASONE NASAL SPRAY 16GM NAS SCH (09:00)
[2021-04-23] MEDS ORDERED: TPN PER PHARMACY MC PRN (09:30)
[2021-04-23] MEDS: HYDROXYCHLOROQUINE 200 MG TABLET PO SCH ×2 (10:13→20:32)
[2021-04-23] MEDS: APIXABAN 5 MG TABLET PO SCH ×2 (10:13→20:32)
[2021-04-23] MEDS: DIGOXIN 0.125 MG TABLET PO SCH (10:13)
[2021-04-23] MEDS: CHOLECALCIFEROL 1,000 UNIT TABLET PO SCH (10:14)
[2021-04-23] MEDS: ERTAPENEM 1 GM in SODIUM CHLORIDE 0.9% 50 ML IV SCH (10:15)
[2021-04-23] MEDS: FUROSEMIDE 20 MG/2 ML IV SCH (10:15)
[2021-04-23] MEDS: POTASSIUM CHLORIDE 20 MEQ PACKET PO SCH (10:15)
[2021-04-23] MEDS: PANTOPRAZOLE 40 MG IV IVPush SCH (10:16)
[2021-04-23] MEDS ORDERED: CEFTRIAXONE 2 GM in DEXTROSE 5% 50 ML IVPB SCH (11:00)
[2021-04-23] MEDS: SODIUM CHLORIDE 0.9% IVPB SCH (11:14)
[2021-04-23] MEDS: DAPTOMYCIN IVPB SCH (11:14)
[2021-04-23 11:40] LABS: HCT (SEDRATE) 26.4 % (34.6-47.8)
[2021-04-23] MEDS ORDERED: VANCOMYCIN 1,000 MG in SODIUM CHLORIDE 0.9% 100 ML IV SCH (12:00)
[2021-04-23 13:22] VITALS: BP 118/74
[2021-04-23] MEDS ORDERED: DEXTROSE 10% 500 ML IV PRN (17:00)
[2021-04-23] MEDS ORDERED: AMINO ACID 10% 750 ML, DEXTROSE 70% 350 ML, FAT EMUL/SMOF TPN 200 ML, STERILE WATER 1,0... IV SCH (17:00)
[2021-04-23] MEDS ORDERED: DEXTROSE 50%, 50ML SYRINGE IVPush PRN (17:00)
[2021-04-23] MEDS ORDERED: PVN PER PHARMACY IV SCH (17:00)
[2021-04-23 18:50] VITALS: BP 125/77
[2021-04-23] MEDS: INSULIN REGULAR HIGH DOSE Q6H X 48HRS SQ-INSULIN SCH (21:00)
[2021-04-24 00:25] VITALS: BP 144/80
[2021-04-24] MEDS: INSULIN REGULAR HIGH DOSE Q6H X 48HRS SQ-INSULIN SCH ×4 (03:00→21:01)
[2021-04-24] MEDS: ACETAMINOPHEN 650 MG/20.3 ML UDC GT SCH (05:31)
[2021-04-24] MEDS: HYDROCORTISONE 100 MG INJ. IVPush SCH ×3 (06:38→23:33)
[2021-04-24 06:55] VITALS: BP 101/67
[2021-04-24 06:56] LABS: BASOPHILS % (AUTO) 0 % (0-1); EOSINOPHILS % (AUTO) 0 % (1-7); LYMPHOCYTES % (AUTO) 4 % (22-44); MEAN CORPUSCULAR HEMOGLOBIN 27.8 pg (27.0-34.8); MONOCYTES % (AUTO) 3 % (2-9); NEUTROPHILS % (AUTO) 93 % (42-75); PLATELET COUNT 140 x10^3/uL (130-400); RED BLOOD COUNT 3.01 x10^6/uL (3.82-5.3); RED CELL DISTRIBUTION WIDTH 19.9 % (9.6-15.2)
[2021-04-24 07:01] LABS: ALANINE AMINOTRANSFERASE 23 U/L (12-78); ALBUMIN 2.3 g/dL (3.4-5.0); ANION GAP 3 mmol/L (5-15); CALCIUM 8.3 mg/dL (8.5-10.1); CHLORIDE 103 mmol/L (98-107)
[2021-04-24 07:04] LABS: ALKALINE PHOSPHATASE 68 U/L (45-117); BILIRUBIN,TOTAL 0.4 mg/dL (0.2-1.0); CREATININE 0.57 mg/dL (0.55-1.02); TOTAL PROTEIN 5.1 g/dL (6.4-8.2)
[2021-04-24] MEDS: FLUTICASONE NASAL SPRAY 16GM NAS SCH (09:00)
[2021-04-24] MEDS: PANTOPRAZOLE 40 MG IV IVPush SCH (09:29)
[2021-04-24] MEDS: POTASSIUM CHLORIDE 20 MEQ PACKET PO SCH (09:30)
[2021-04-24] MEDS: FUROSEMIDE 20 MG/2 ML IV SCH (09:30)
[2021-04-24] MEDS: CHOLECALCIFEROL 1,000 UNIT TABLET PO SCH (09:30)
[2021-04-24] MEDS: APIXABAN 5 MG TABLET PO SCH ×2 (09:30→20:25)
[2021-04-24] MEDS: HYDROXYCHLOROQUINE 200 MG TABLET PO SCH ×2 (09:30→20:25)
[2021-04-24] MEDS: ACETAMINOPHEN 325 MG TABLET PO SCH ×3 (10:33→23:30)
[2021-04-24] MEDS: DAPTOMYCIN IVPB SCH (10:49)
[2021-04-24] MEDS: SODIUM CHLORIDE 0.9% IVPB SCH (10:49)
[2021-04-24 13:11] VITALS: BP 126/64
[2021-04-24] MEDS ORDERED: AMINO ACID 10% 750 ML, DEXTROSE 70% 350 ML, FAT EMUL/SMOF TPN 200 ML, STERILE WATER 1,0... IV SCH (17:00)
[2021-04-24 19:21] VITALS: BP 108/60
[2021-04-24] MEDS: FILTER, DISP 1.2 MICRON FOR TPN/PVN IV PRN (20:25)
[2021-04-25 00:50] VITALS: BP 132/79
[2021-04-25] MEDS: ACETAMINOPHEN 325 MG TABLET PO SCH ×4 (03:33→23:40)
[2021-04-25] MEDS: INSULIN REGULAR HIGH DOSE Q6H X 48HRS SQ-INSULIN SCH ×3 (03:57→13:26)
[2021-04-25] MEDS: HYDROCORTISONE 100 MG INJ. IVPush SCH ×3 (06:00→23:40)
[2021-04-25 06:03] LABS: BASOPHILS % (AUTO) 0 % (0-1); EOSINOPHILS % (AUTO) 0 % (1-7); LYMPHOCYTES % (AUTO) 3 % (22-44); MEAN CORPUSCULAR HEMOGLOBIN 28.3 pg (27.0-34.8); MEAN CORPUSCULAR HGB CONC 33.4 g/dL (32.4-35.8); MEAN PLATELET VOLUME 7.7 fL (7.4-10.4); MONOCYTES % (AUTO) 3 % (2-9); NEUTROPHILS % (AUTO) 94 % (42-75); PLATELET COUNT 143 x10^3/uL (130-400); RED BLOOD COUNT 2.74 x10^6/uL (3.82-5.3); RED CELL DISTRIBUTION WIDTH 19.9 % (9.6-15.2)
[2021-04-25 06:08] LABS: INTERNATIONAL NORMALIZED RATIO 1.24 (0.93-1.1); PROTHROMBIN TIME 13.2 Seconds (9.6-11.5)
[2021-04-25 06:12] LABS: CHLORIDE 101 mmol/L (98-107)
[2021-04-25 06:23] LABS: ALANINE AMINOTRANSFERASE 21 U/L (12-78); ALBUMIN 2.2 g/dL (3.4-5.0); ALKALINE PHOSPHATASE 61 U/L (45-117); ANION GAP 3 mmol/L (5-15); BILIRUBIN,TOTAL 0.3 mg/dL (0.2-1.0); CALCIUM 8.1 mg/dL (8.5-10.1); CREATININE 0.47 mg/dL (0.55-1.02); TOTAL PROTEIN 4.9 g/dL (6.4-8.2)
[2021-04-25 07:03] VITALS: BP 139/80
[2021-04-25] MEDS: PANTOPRAZOLE 40 MG IV IVPush SCH (07:30)
[2021-04-25] MEDS: FLUTICASONE NASAL SPRAY 16GM NAS SCH (09:00)
[2021-04-25] MEDS: POTASSIUM CHLORIDE 20 MEQ PACKET PO SCH (11:43)
[2021-04-25] MEDS: FUROSEMIDE 20 MG/2 ML IV SCH (11:43)
[2021-04-25] MEDS: APIXABAN 5 MG TABLET PO SCH ×2 (11:43→20:33)
[2021-04-25] MEDS: CHOLECALCIFEROL 1,000 UNIT TABLET PO SCH (11:44)
[2021-04-25] MEDS: DIGOXIN 0.125 MG TABLET PO SCH (11:44)
[2021-04-25] MEDS: HYDROXYCHLOROQUINE 200 MG TABLET PO SCH ×2 (11:44→20:33)
[2021-04-25 12:19] VITALS: BP 145/78
[2021-04-25] MEDS: DAPTOMYCIN IVPB SCH (13:27)
[2021-04-25] MEDS: SODIUM CHLORIDE 0.9% IVPB SCH (13:27)
[2021-04-25] MEDS ORDERED: AMINO ACID 10% 750 ML, DEXTROSE 70% 350 ML, FAT EMUL/SMOF TPN 200 ML, STERILE WATER 1,0... IV SCH (17:00)
[2021-04-25] MEDS: FILTER, DISP 1.2 MICRON FOR TPN/PVN IV PRN (17:39)
[2021-04-25 18:26] VITALS: BP 128/81
[2021-04-26 02:21] VITALS: BP 136/75
[2021-04-26 05:30] LABS: CHLORIDE 101 mmol/L (98-107)
[2021-04-26] MEDS: ACETAMINOPHEN 325 MG TABLET PO SCH ×5 (05:30→23:55)
[2021-04-26 05:34] LABS: CALCIUM 8.1 mg/dL (8.5-10.1); CREATININE 0.41 mg/dL (0.55-1.02)
[2021-04-26 05:43] LABS: ANION GAP 3 mmol/L (5-15)
[2021-04-26 06:58] VITALS: BP 156/75
[2021-04-26] MEDS: FUROSEMIDE 20 MG/2 ML IV SCH (08:45)
[2021-04-26] MEDS: PANTOPRAZOLE 40 MG IV IVPush SCH (08:45)
[2021-04-26] MEDS: HYDROCORTISONE 100 MG INJ. IVPush SCH ×3 (08:45→23:56)
[2021-04-26] MEDS: HYDROXYCHLOROQUINE 200 MG TABLET PO SCH ×2 (08:46→20:57)
[2021-04-26] MEDS: FLUTICASONE NASAL SPRAY 16GM NAS SCH (08:46)
[2021-04-26] MEDS: CHOLECALCIFEROL 1,000 UNIT TABLET PO SCH (08:46)
[2021-04-26] MEDS: APIXABAN 5 MG TABLET PO SCH ×2 (08:46→20:57)
[2021-04-26] MEDS: POTASSIUM CHLORIDE 20 MEQ PACKET PO SCH (08:46)
[2021-04-26] MEDS: INSULIN REGULAR HIGH DOSE QDAY SQ-INSULIN SCH (09:13)
[2021-04-26] MEDS: DAPTOMYCIN IVPB SCH (12:19)
[2021-04-26] MEDS: SODIUM CHLORIDE 0.9% IVPB SCH (12:19)
[2021-04-26 12:31] VITALS: BP 122/83
[2021-04-26] MEDS ORDERED: TPN PER PHARMACY MC SCH (13:24)
[2021-04-26] MEDS ORDERED: FAT EMUL IV SCH ×2 (17:00)
[2021-04-26] MEDS ORDERED: DEXTROSE 70% IV SCH ×2 (17:00)
[2021-04-26] MEDS ORDERED: [UNRECOGNIZED DRUG - OTHER] IV SCH (17:00)
[2021-04-26] MEDS ORDERED: SMOF TPN IV SCH ×2 (17:00)
[2021-04-26] MEDS ORDERED: [UNRECOGNIZED DRUG - OTHER] IV SCH (17:00)
[2021-04-26] MEDS ORDERED: AMINO ACID 10% IV SCH ×2 (17:00)
[2021-04-26] MEDS: FILTER, DISP 1.2 MICRON FOR TPN/PVN IV PRN (18:07)
[2021-04-26 21:05] VITALS: BP 130/82
[2021-04-27] MEDS: APAP/CODEINE 300/30MG TABLET PO PRN ×2 (02:01→20:27)
[2021-04-27 02:46] VITALS: BP_SYST 146; BP_SYST 149; BP_DIAS 92; BP_DIAS 94
[2021-04-27 04:38] LABS: BASOPHILS % (AUTO) 0 % (0-1); EOSINOPHILS % (AUTO) 0 % (1-7); HCT (SEDRATE) 25.8 % (34.6-47.8); LYMPHOCYTES % (AUTO) 2 % (22-44); MEAN CORPUSCULAR HEMOGLOBIN 28.5 pg (27.0-34.8); MEAN CORPUSCULAR HGB CONC 33.2 g/dL (32.4-35.8); MEAN PLATELET VOLUME 8.2 fL (7.4-10.4); MONOCYTES % (AUTO) 3 % (2-9); NEUTROPHILS % (AUTO) 95 % (42-75); PLATELET COUNT 158 x10^3/uL (130-400); RED BLOOD COUNT 3.02 x10^6/uL (3.82-5.3); RED CELL DISTRIBUTION WIDTH 21.2 % (9.6-15.2)
[2021-04-27 04:50] LABS: ALANINE AMINOTRANSFERASE 40 U/L (12-78); ALBUMIN 2.3 g/dL (3.4-5.0); ANION GAP 3 mmol/L (5-15); C-REACTIVE PROTEIN, QUANT 0.53 mg/dL (0.02-0.49); CALCIUM 8.3 mg/dL (8.5-10.1); CHLORIDE 102 mmol/L (98-107); CREATININE 0.48 mg/dL (0.55-1.02)
[2021-04-27 04:55] LABS: ALKALINE PHOSPHATASE 74 U/L (45-117); BILIRUBIN,TOTAL 0.5 mg/dL (0.2-1.0); CREATINE KINASE, TOTAL 47 U/L (26-192); PREALBUMIN 22.8 mg/dL (20.0-40.0); TOTAL PROTEIN 5.1 g/dL (6.4-8.2)
[2021-04-27] MEDS: ACETAMINOPHEN 325 MG TABLET PO SCH ×3 (05:30→19:30)
[2021-04-27] MEDS: INSULIN REGULAR HIGH DOSE QDAY SQ-INSULIN SCH (06:24)
[2021-04-27 06:50] VITALS: BP 121/73
[2021-04-27] MEDS: HYDROCORTISONE 100 MG INJ. IVPush SCH (08:43)
[2021-04-27] MEDS: PANTOPRAZOLE 40 MG IV IVPush SCH (08:43)
[2021-04-27] MEDS: POTASSIUM CHLORIDE 20 MEQ PACKET PO SCH (08:44)
[2021-04-27] MEDS: HYDROXYCHLOROQUINE 200 MG TABLET PO SCH ×2 (08:44→20:27)
[2021-04-27] MEDS: DIGOXIN 0.125 MG TABLET PO SCH (08:44)
[2021-04-27] MEDS: APIXABAN 5 MG TABLET PO SCH ×2 (08:44→20:28)
[2021-04-27] MEDS: CHOLECALCIFEROL 1,000 UNIT TABLET PO SCH (08:44)
[2021-04-27] MEDS: FUROSEMIDE 20 MG/2 ML IV SCH (08:44)
[2021-04-27] MEDS: FLUTICASONE NASAL SPRAY 16GM NAS SCH (08:55)
[2021-04-27 12:23] VITALS: BP 116/76
[2021-04-27] MEDS: DAPTOMYCIN IVPB SCH (15:42)
[2021-04-27] MEDS: SODIUM CHLORIDE 0.9% IVPB SCH (15:42)
[2021-04-27 18:26] VITALS: BP 115/70
[2021-04-27 21:26] VITALS: BP 111/76
[2021-04-28] MEDS: DIPHENHYDRAMINE 25 MG CAPSULE PO PRN ×2 (00:32→20:16)
[2021-04-28] MEDS: ACETAMINOPHEN 325 MG TABLET PO SCH ×4 (02:43→21:00)
[2021-04-28 03:07] VITALS: BP 109/66
[2021-04-28 06:58] VITALS: BP 113/75
[2021-04-28] MEDS: FLUTICASONE NASAL SPRAY 16GM NAS SCH (10:09)
[2021-04-28] MEDS: POTASSIUM CHLORIDE 20 MEQ PACKET PO SCH (10:19)
[2021-04-28] MEDS: PANTOPRAZOLE 40 MG IV IVPush SCH (10:19)
[2021-04-28] MEDS: FUROSEMIDE 20 MG/2 ML IV SCH (10:19)
[2021-04-28] MEDS: CHOLECALCIFEROL 1,000 UNIT TABLET PO SCH (10:20)
[2021-04-28] MEDS: APIXABAN 5 MG TABLET PO SCH ×2 (10:20→20:17)
[2021-04-28] MEDS: HYDROXYCHLOROQUINE 200 MG TABLET PO SCH ×2 (10:20→20:17)
[2021-04-28] MEDS: INSULIN REGULAR HIGH DOSE QDAY SQ-INSULIN SCH (10:35)
[2021-04-28 12:35] VITALS: BP 131/94
[2021-04-28] MEDS: DAPTOMYCIN IVPB SCH (13:14)
[2021-04-28] MEDS: SODIUM CHLORIDE 0.9% IVPB SCH (13:14)
[2021-04-28 19:40] VITALS: BP 104/73
[2021-04-28] MEDS: APAP/CODEINE 300/30MG TABLET PO PRN (20:17)
[2021-04-29 00:13] VITALS: BP 98/63
[2021-04-29] MEDS: ACETAMINOPHEN 325 MG TABLET PO SCH ×4 (03:00→21:35)
[2021-04-29] MEDS: PANTOPRAZOLE 40MG TABLET PO SCH (05:05)
[2021-04-29] MEDS: APAP/CODEINE 300/30MG TABLET PO PRN (05:06)
[2021-04-29 07:50] VITALS: BP 105/50
[2021-04-29] MEDS: FUROSEMIDE 20 MG/2 ML IV SCH (09:29)
[2021-04-29] MEDS: CHOLECALCIFEROL 1,000 UNIT TABLET PO SCH (09:30)
[2021-04-29] MEDS: HYDROXYCHLOROQUINE 200 MG TABLET PO SCH ×2 (09:31→21:35)
[2021-04-29] MEDS: DIGOXIN 0.125 MG TABLET PO SCH (09:31)
[2021-04-29] MEDS: APIXABAN 5 MG TABLET PO SCH ×2 (09:31→21:35)
[2021-04-29] MEDS: POTASSIUM CHLORIDE 20 MEQ PACKET PO SCH (09:32)
[2021-04-29] MEDS: FLUTICASONE NASAL SPRAY 16GM NAS SCH (09:32)
[2021-04-29] MEDS: INSULIN REGULAR HIGH DOSE QDAY SQ-INSULIN SCH (10:05)
[2021-04-29] MEDS: LORazepam 2 MG/ML, 1ML IVPush PRN ×2 (11:55→22:52)
[2021-04-29] MEDS: DAPTOMYCIN IVPB SCH (13:47)
[2021-04-29] MEDS: SODIUM CHLORIDE 0.9% IVPB SCH (13:47)
[2021-04-29 15:30] VITALS: BP 97/60
[2021-04-29 19:09] VITALS: BP 104/90
[2021-04-29] MEDS: DIPHENHYDRAMINE 25 MG CAPSULE PO PRN (21:35)
[2021-04-30 02:46] VITALS: BP 103/56
[2021-04-30] MEDS: ACETAMINOPHEN 325 MG TABLET PO SCH ×2 (03:00→09:17)
[2021-04-30] MEDS: APAP/CODEINE 300/30MG TABLET PO PRN (03:01)
[2021-04-30] MEDS: PANTOPRAZOLE 40MG TABLET PO SCH (05:56)
[2021-04-30] MEDS: LORazepam 2 MG/ML, 1ML IVPush PRN (06:43)
[2021-04-30 06:51] VITALS: BP 94/61
[2021-04-30] MEDS: INSULIN REGULAR HIGH DOSE QDAY SQ-INSULIN SCH (09:00)
[2021-04-30] MEDS: FLUTICASONE NASAL SPRAY 16GM NAS SCH (09:00)
[2021-04-30] MEDS: CHOLECALCIFEROL 1,000 UNIT TABLET PO SCH (09:17)
[2021-04-30] MEDS: POTASSIUM CHLORIDE 20 MEQ PACKET PO SCH (09:17)
[2021-04-30] MEDS: FUROSEMIDE 20 MG/2 ML IV SCH (09:17)
[2021-04-30] MEDS: APIXABAN 5 MG TABLET PO SCH (09:17)
[2021-04-30] MEDS: HYDROXYCHLOROQUINE 200 MG TABLET PO SCH (09:17)
[2021-04-30] MEDS: morphine SULFATE 10 MG/ML, 1ML IVPush PRN (11:58)
[2021-04-30] MEDS: DAPTOMYCIN IVPB SCH (13:56)
[2021-04-30] MEDS: SODIUM CHLORIDE 0.9% IVPB SCH (13:56)
[2021-04-30] MEDS ORDERED: SCOPOLAMINE 1MG PATCH TD PRN (14:00)
[2021-04-30] MEDS ORDERED: LORazepam 2 MG/ML, 1ML IVPush PRN (14:00)
[2021-04-30] MEDS: MORPHINE 30MG/30ML PCA.SYR IV SCH (16:22)
[2021-05-01] MEDS: MORPHINE 30MG/30ML PCA.SYR IV SCH ×2 (02:06→09:28)
[2021-05-01] MEDS ORDERED: ATROPINE OPHTH SOLN 1%, 2ML PO PRN (09:00)
[2021-05-01] MEDS: LORazepam 2 MG/ML, 1ML IVPush SCH ×4 (09:43→14:30)
== END 2021-05-01 15:45 | disposition expired | DRG 871 ==
LOC: ED 10:56 → 5SO 13:24 → 3N 04-30 08:33 → 4NW 04-30 23:04
PROVIDERS: ADMIT Family Medicine; ATTEND Hospitalist
PROC: 0T9B70Z Drainage of Bladder with Drainage Device, Via Natural or Artificial Opening (ICD-10-PCS; principal; 2021-04-14)
PROC: 0DH64UZ Insertion of Feeding Device into Stomach, Percutaneous Endoscopic Approach (ICD-10-PCS; 2021-04-19)
PROC: 5A09357 Assistance with Respiratory Ventilation, Less than 24 Consecutive Hours, Continuous Positive Airway Pressure (ICD-10-PCS; 2021-04-19)
PROC: 02HV33Z Insertion of Infusion Device into Superior Vena Cava, Percutaneous Approach (ICD-10-PCS; 2021-04-23)
PROC: B5181ZA Fluoroscopy of Superior Vena Cava using Low Osmolar Contrast, Guidance (ICD-10-PCS; 2021-04-23)
PROC: B548ZZA Ultrasonography of Superior Vena Cava, Guidance (ICD-10-PCS; 2021-04-23)
DX: A41.01 Sepsis due to Methicillin susceptible Staphylococcus aureus (principal); E43 Unspecified severe protein-calorie malnutrition; I33.0 Acute and subacute infective endocarditis; J18.9 Pneumonia, unspecified organism; D68.59 Other primary thrombophilia; I48.92 Unspecified atrial flutter; J44.0 Chronic obstructive pulmonary disease with (acute) lower respiratory infection; K56.7 Ileus, unspecified; Z66 Do not resuscitate; R62.7 Adult failure to thrive; E83.42 Hypomagnesemia; E87.6 Hypokalemia; Z68.21 Body mass index [BMI] 21.0-21.9, adult; B95.5 Unspecified streptococcus as the cause of diseases classified elsewhere; D64.9 Anemia, unspecified; H91.90 Unspecified hearing loss, unspecified ear; I00 Rheumatic fever without heart involvement; I08.0 Rheumatic disorders of both mitral and aortic valves; I11.0 Hypertensive heart disease with heart failure; I48.0 Paroxysmal atrial fibrillation; I50.9 Heart failure, unspecified; K22.2 Esophageal obstruction; K22.5 Diverticulum of esophagus, acquired; Z20.822 Contact with and (suspected) exposure to COVID-19; L89.159 Pressure ulcer of sacral region, unspecified stage; M06.9 Rheumatoid arthritis, unspecified; R13.10 Dysphagia, unspecified; Z51.5 Encounter for palliative care; Z79.01 Long term (current) use of anticoagulants; Z85.819 Personal history of malignant neoplasm of unspecified site of lip, oral cavity, and pharynx; Z86.718 Personal history of other venous thrombosis and embolism; Z87.891 Personal history of nicotine dependence; Z90.49 Acquired absence of other specified parts of digestive tract; Z88.1 Allergy status to other antibiotic agents; Z99.81 Dependence on supplemental oxygen; Z88.0 Allergy status to penicillin; Z88.2 Allergy status to sulfonamides; Z88.8 Allergy status to other drugs, medicaments and biological substances
CPT/HCPCS: 36415; 36573; 36600; 71045; 74018; 74021; 74150; 80048; 80053; 80061; 81001; 82550; 82803; 82962; 83036; 83605; 83690; 83735; 83880; 84100; 84134; 84443; 84484; 85025; 85610; 85651; 86140; 86480; 87040; 87077; 87086; 87147; 87181; 87186; 87635; 93005; 93306; 94660; 99285; B4087; G0378; J0171; J0610; J0878; J1100; J1335; J1650; J1815; J1940; J2250; J2270; J3010; J3370; J3475; J3480; P9047; Q0162; C1751; C9113; J0330; J1160; J1644; J1720; J2060; J2370; J2765; J3420; J7030; J7040; J7121; J7512; Q0163